=== PATIENT | female | born 1990 | race Caucasian/White ===

== ENCOUNTER 2022-04-25 08:45 | Outpatient (RCR) | payer OTHER, SELFPAY | END 2022-09-07 23:59 | disposition home or self-care (01) | PROVIDERS: PCP Family Medicine; Visit Provider Family Medicine | DX: R20.2 Paresthesia of skin (principal); G56.22 Lesion of ulnar nerve, left upper limb; Z51.89 Encounter for other specified aftercare | CPT/HCPCS: 97035; 97140; 97165 ==

== ENCOUNTER 2024-01-10 19:09 | Emergency (ER) | payer OTHER, SELFPAY ==
[2024-01-10 19:29] VITALS: BP 115/79; PULSE 84; RESP 18; TEMP 36.8; O2SAT 97; BMI 20.2
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
[2024-01-10] MEDS: diphenhydrAMINE 50 MG/ML inj 25 MG IVP (20:51)
[2024-01-10] MEDS: LIDOCAINE 1 % PF 30 ML INJECTION (20:52)
[2024-01-10] MEDS: KETOROLAC 30 MG/ML inj 15 MG IVP (20:52)
[2024-01-10] MEDS: ONDANSETRON 2 MG/ML inj 4 MG IVP (20:52)
[2024-01-10] MEDS: METHYLPREDNISOLONE SOD SUCC 62.5 MG/ML (125) 125 MG IM (20:52)
[2024-01-10 21:06] VITALS: PULSE 70; O2SAT 98
[2024-01-10 21:32] VITALS: BP 109/67; PULSE 65; RESP 18; O2SAT 97
== END 2024-01-10 22:01 | disposition home or self-care (01) ==
PROVIDERS: Emergency Provider Emergency Medicine Emergency Medical Services; PCP Family Medicine
DX: R51.9 Headache, unspecified (principal)
CPT/HCPCS: 96372; 96374; 96375; 99283; 99284; J1200; J1885; J2003; J2405; J2919

== ENCOUNTER 2024-12-01 12:50 | Emergency (ER) | payer BC, SELFPAY ==
--- OUTSIDE RECORDS SUMMARY | 2024-12-01 12:53 | XMS_ITS | Clinical Summary ---
Author Organization [facility] Address [address] [place] [id number] Care Team Providers Care Media Senior Recruiter Name Role Phone Aimee Black MD Primary Care Provider Allergies Active Allergy Reactions Criticality Noted Date Comments Ciprofibrate Nephritis 01/31/2019 Hydromorphone Nausea And Vomiting 01/31/2019 Latex Itching 03/02/2011 Metronidazole Headache Medium 11/28/2011 Hx of migraines, previously controlled, this triggered Penicillins Hives 01/31/2019 Medications melatonin 3 mg tablet Take 1.5 Tablets (4.5 mg) by mouth once daily. 0 2 Active ibuprofen (ADVIL; MOTRIN) 600 mg tablet Take 600 mg by mouth. 2 Active Aluminum Chloride (CERTAIN DRI) liqdIndications: Excessive sweating Apply topically to affected area(s) at bedtime. 45 mL 3 Active Ubrelvy 50 mg tab tablet TAKE 1 TABLET BY MOUTH NEEDED FOR HEADACHE. MAY REPEAT IN 2 HOURS. MAX 2 TABLETS PER DAY. MAX 2-3 DAYS PER WEEK OR 9 TOTAL DAYS PER MONTH. Active ergocalciferol (,vitamin D2,) 50,000 unit capsule Take 50,000 units by mouth. Once weekly Active medication order composerIndicati ons:Sleep disturbance Magnesium glycinate 3 tabs qPM, 2 tabs qAM, Hum-vaginal pH balance supplement, First day womens vitamins, Vitamin C-500mg, glutathione, mineral drops two times daily 5 Active Active Problems Problem Noted Date Diagnosed Date Pap smear for cervical cancer screening 03/29/19 23 Overview (03/29/2022): 08/2010 ASCUS/HPV+ 09/2010 [place]:benign (age 21) 2011,2013,2016 NIL 02/2022 NIL/HPV negative Plan: Pap/HPV due 02/2027 Migraine syndrome 08/17/2021 Frequent headaches 11/11/2014 Neck pain 11/11/2014 Abnormal Pap smear 07/24/2011 Anxiety 05/22/2011 ADD (attention deficit disorder) 04/19/2009 Resolved Problems Problem Noted Date Diagnosed Date Resolved Date History of HPV infection 11/20/201109/2022 Immunizations Immunization Administration Dates Next Due COVID-19 vaccine (Moderna 100mcg/0.5mL) PF, MDV 08/03/2020,07/06/2020 COVID-19 vaccine (Pfizer-Bio NTech 30mcg/0.3mL) 12YO+ BIVALENT PF, MDV 11/30/2021 DTP 06/07/1995, 5,03/04/1992,10/08,06/06/1990,01/16/1990 DTaP 07/02/2008,06/14/1994 HIB HbOC (HibTITER) 03/04/1992,06/06/1990,1989 Hepatitis B (Peds) 03/25/2001,12/25/2000, 000 Human Papilloma Virus Vaccine 02/26/2007, 007,03/12/2006 Influenza Virus, Unspecified 11/20/2011 Influenza, IIV3 (Age >=3 years) 11/20/2011,04/11 Influenza, IIV4 02/11/2014 MMR 05/18/1999,03/04/1992 Meningococcal Vaccine (Menactra) 03/12/2006 Oral Polio Vaccine 06/07/1995, 5,03/04/1992,06/06,01/16/1990 Td (Age >=7 Years) 09/10/2001 Td, Preservative Free (age >= 7 Years) 2 Tdap 04/22/2018,07/02/2008 Family History Medical History Relation Name Comments Hypertrophic cardiomyopathy Mother Relation Name Status Comments Mother Social History Tobacco Use Types Packs/Day Years Used Date Smoking Tobacco: Never Smokeless Tobacco: Never Tobacco Cessation:Counseling Given: Yes Alcohol Use Standard Drinks/Week Comments Not Currently 0 (1 standard drink = 0.6 oz pur e alcohol) PHQ-2 Answer Date Recorded PHQ-2 TOTAL SCORE 0 03/09/2022 Social Connections Answer Date Recorded Frequency of Communication with Friends and Fami ly 0 03/13/2022 Financial Resource Strain Answer Date R ecorded Difficulty of Paying Living Expenses 3 03/13/2022 Difficulty of Paying Living Expenses Not on file 03/13/2022 Food Insecurity Answer Date Recorded Worried About Running Out of Food in the Last Ye ar 1 03/13/2022 Transportation Needs Answer Date Record ed Lack of Transportation (Medical) 1 03/13/2022 Housing Stability Answer Date Recorded Unable to Pay for Housing in the Last Year 1 03/13/2022 Comments No Sex and Gender Information Value Date Recorded Sex Assigned at Not on file Legal Sex 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 Gender Identity Not on file Sexual Orientation Not on file Obstetrics History Last Filed Vital Signs Vital Sign Reading Time Taken Comments Blood Pressure 118/79 02/26/2023 12:51 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 Pulse 69 02/26/2023 12:51 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 Temperature 36.8 C (98.3 F) 12/12/2021 10:00 AM CDT Respiratory Rate 20 01/31/2019 6:43 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 Oxygen Saturation 100% 02/26/2023 12:51 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 Inhaled Oxygen Concentration - - Weight 58.6 kg (129 lb 3.2 oz) 02/26/2023 12:51 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 Height 166.7 cm (5' 5.63) 02/26/2023 12:[address] Body Mass Index 21.09 02/26/2023 12:51 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 Plan of Treatment Health Maintenance Due Date Last Done Comments HIV for age 15-65 2004 Hepatitis C screening for age 18-79 08/08/2007 Depression screening for age 12+ 03/14/2023 03/14/2022, 03/13/2022, 03/10/2022, Additional history exists BMI (ht and wt on same day) for age 18+ 02/27/2024 02/26/2023, 03/09/2022, 03/09/2022, Additional history exists COVID-19 vaccine series (2024- season) 2024 11/30/2021, 08/03/2020, 07/06/2020 Influenza Vaccine (#1) 2024 4, 11/20/2011, 11/20/2011, Additional history exists Pap test for age 21-65 03/09/2025 03/09/2022, 2022 Tetanus booster 04/22/2028 04/22/2018, 06/19, 09/10/2001, Additional history exists RSV vaccine for adults or (1 - 1-dose 75+ series) 2064 Hepatitis B series for 19+ Completed 03/25, 12/25/2000, 05/18/1999 HPV series for age 9-45 Completed 02/26/19 08, 09/07/2006, 03/12/2006 Pneumococcal series for age 6-49 Aged Out No longer eligible based on patient's age to complete this topic Procedures Procedure Name Priority Date/Time Associated Diagnosis Comments HPV HIGH RISK Routine 03/09/2022 11:13 AM BOAT FINISHER Screening for cervical cancer from Last 3 Months or Most Recently Relevant to Health Maintenance Results * HPV HIGH RISK (03/09/2022 11:13 AM BOAT FINISHER) TYPE 16 Negative Negative 03/13/2022 3:00 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 [facility] TYPE 18 Negative Negative 03/13/2022 3:00 PM [facility] OTHER HIGH RISK TYPES Negative Negative 03/13/2022 3:00 PM [facility] Other (Cervical) Non-Blood / Unknown 03/09/2022 11:13 AM BOAT FINISHER 03/10/2022 2:55 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 [facility] - 03/13/2022 3:00 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 HPV types 16, 18, 31, 33, 35, 39, 45, 51, 52, 56, 58, 59, 66 and 68 DNA were undetectable or below the pre-set threshold. Methodology: Curis Ying 4800 HPV Test us Aimee Black MD MICROBIOLOGY Final Resul t [facility] [address] [place] [address], [place] from Last 3 Months or Most Recently Relevant to Health Maintenance Insurance [employer] [address] Care Teams Media Senior Recruiter Relationship Specialty Start Date End Date Aimee Black MD [address] [place] [address] PCP - General Family Practice 10/27/21
[2024-12-01 13:12] VITALS: BP 121/67; PULSE 72; RESP 16; TEMP 36.6; O2SAT 97; BMI 20.2
[2024-12-01] MEDS: ONDANSETRON 2 MG/ML inj 4 MG IVP (14:18)
--- NOTE | 2024-12-01 14:21 | ED.GENADULT ---
HPI - General Adult General Chief complaint: Headache/Migraine Stated complaint: migraine Time Seen by Provider: 12/01/24 13:50 Source: patient Mode of arrival: ambulatory Limitations: no limitations History of Present Illness HPI narrative: 34-year-old female coming in today with a migraine. Patient has recurrent migraines and takes at home medication for them. Today her headache did not sri. Last time she required IV medication was almost 1 year ago. She states that this is fairly regular as far as her symptoms go. She has more pressure across the front of the face with this 1. No pain in her teeth. No purulent nasal discharge. No fevers or chills. No neurologic deficits that would necessitate imaging. Patient has been vomiting. Related Data Home Medications ?Medication ?Instructions ?Recorded ?Confirmed ubrogepant 50 mg tablet (Ubrelvy) mg PO 01/10/24 Allergies Allergy/AdvReac Type Severity Reaction Status Date / Time ciprofloxacin (From Cipro) Allergy Severe Verified 01/10/24 19:38 latex Allergy Intermediate itching Verified 12/01/24 13:18 Penicillins Allergy Verified 01/10/24 19:38 hydromorphone (From Dilaudid) AdvReac Verified 01/10/24 19:38 Review of Systems Status of ROS: Reports: 10 or more systems reviewed and unremarkable except as noted in History and below PFSH PFSH Social History Smoking Status: Never smoker How often do you have a drink containing alcohol: never AUDIT-C Alcohol total score: 0 Non-prescribed substance use: denies use service: No Exam Narrative: Exam Narrative: Well-nourished well-developed patient, uncomfortable. Sitting in the dark. Alert and oriented. Answers questions appropriately. Mood and affect are appropriate. Thoughts are goal oriented and rational. No tangential or magical thinking noted. Patient speaks in full sentences without needing to catch her breath. HEENT: Normocephalic atraumatic. Pupils are equally round reactive to light. Extraocular muscles are intact. Conjunctivae are moist without any icterus noted. Moist mucous membranes. Cardiovascular: Heart is regular rate and rhythm S1 and S2 are present without any murmurs. Lungs: Clear to auscultation bilaterally no wheezes rhonchi or rales are appreciated. Extremities: Bilateral lower extremities are without edema. Skin: Well perfused without any obvious rashes. Strength is 5/5 of the upper and lower extremities. Cranial nerves 3-12 are normal. There is no nystagmus either horizontally or vertically. Gait is normal. Const: Vital Signs, click to edit/add: Vital Signs - 24 hr 12/01/24 13:12 12/01/24 15:17 Temperature 97.9 F Pulse Rate [Pulse Oximeter] 72 70 Respiratory Rate 16 16 Blood Pressure [Ri ght Upper Arm] 121/67 121/67 Pulse Oximetry 97 100 Oxygen Delivery Me thod Room Air Room Air Course Course ED Course: IV established and patient is given IV Toradol, Benadryl, IV fluids and Zofran. Patient had some improvement after treatment but was still feeling some pressure across the face. We therefore added dexamethasone. Vital Signs Vital signs: Initial Vital Signs Temperature 97.9 F 12/01/24 13:12 Temperature Source Temporal Artery Scan 12/01/24 13:12 Pulse Rate 72 12/01/24 13:12 Respiratory Rate 16 12/01/24 13:12 Blood Pressure 121/67 12/01/24 13:12 Blood Pressure Mean 85 12/01/24 13:12 Pulse Oximetry 97 12/01/24 13:12 Oxygen Delivery Method Room Air 12/01/24 13:12 Vital Signs Temperature 97.9 F 12/01/24 13:12 Pulse Rate 72 12/01/24 13:12 Respiratory Rate 16 12/01/24 13:12 Blood Pressure 121/67 12/01/24 13:12 Pulse Oximetry 97 12/01/24 13:12 Oxygen Delivery Method Room Air 12/01/24 13:12 Temperature 97.9 F 12/01/24 13:12 Pulse Rate 70 12/01/24 15:17 Respiratory Rate 16 12/01/24 15:17 Blood Pressure 121/67 12/01/24 15:17 Pulse Oximetry 100 12/01/24 15:17 Oxygen Delivery Method Room Air 12/01/24 15:17 Medications Administered Medications: Discontinued Medications Generic Name Dose Route Start Last Admin Trade Name Freq PRN Reason Stop Dose Admin Dexamethasone 4 mg 12/01/24 14:55 12/01/24 15:14 Dexamethasone 4 Mg/Ml Vial IVP 12/01/24 14:56 4 mg ONCE ONE Administration Diphenhydramine HCl 25 mg 12/01/24 14:02 12/01/24 14:18 Diphenhydramine 50 Mg/Ml Inj IVP 12/01/24 14:03 25 mg ONCE ONE Administration Sodium Chloride 1,000 mls @ 1,000 mls/hr 12/01/24 14:15 12/01/24 15:14 0.9 % Sodium Chloride 1000 Ml IV 12/01/24 15:14 Infused .Q1H LUDMILA Infusion Ketorolac Tromethamine 30 mg 12/01/24 14:02 12/01/24 14:17 Ketorolac 30 Mg/Ml Inj IVP 12/01/24 14:03 30 mg ONCE ONE Administration Ondansetron HCl 4 mg 12/01/24 14:02 12/01/24 14:18 Ondansetron 2 Mg/Ml Inj IVP 12/01/24 14:03 4 mg ONCE ONE Administration Medical Decision Making MDM Narrative Medical decision making narrative: 34-year-old female with migraine headache and sinus pressure. Discussed symptomatic treatment for the sinus pressure. Patient will follow-up with her primary care team. She already has an appointment for this week set up for Botox. Discharge Plan Discharge Clinical Impression: Migraine, Sinus pressure Patient Disposition: Home, Self-Care Condition: Stable Additional Instructions: Follow-up with your care team as scheduled. Prescriptions: No Action Ubrelvy 50 mg tablet PO Follow Up/Referrals: Aimee Black MD [Primary Care Provider, Obstetrics] Stand Alone [facility] Inst[facility]
[2024-12-01 15:17] VITALS: BP 121/67; PULSE 70; RESP 16; O2SAT 100
== END 2024-12-01 15:50 | disposition home or self-care (01) ==
PROVIDERS: Emergency Provider Family Medicine; PCP Family Medicine
DX: G43.909 Migraine, unspecified, not intractable, without status migrainosus (principal)
CPT/HCPCS: 96361; 96374; 96375; 99284; 99285; J1100; J1200; J1885; J2405; J7030